=== PATIENT | male | born 1975 | race Caucasian/White ===

== ENCOUNTER 2016-08-04 17:27 | Emergency (ER) | payer BC ==
[~2016-08-04 17:27] MED LIST: LOTENSIN HCT1 TA2 PO; UNKNOWN ANTIBIOTIC
== END 2016-08-04 19:29 | disposition home or self-care (01) ==
LOC: ER 17:27
DX: S42.002A Fracture of unspecified part of left clavicle, initial encounter for closed fracture (principal); Z88.2 Allergy status to sulfonamides; Z88.8 Allergy status to other drugs, medicaments and biological substances; X58.XXXA Exposure to other specified factors, initial encounter
CPT/HCPCS: 73000-LT; 73030-LT; 99283; A9270-GY; J1170; J2405